=== PATIENT | male | born 1955 | race Caucasian/White ===

== ENCOUNTER 2017-02-25 14:04 | Observation (INO) | payer OTHER ==
[2017-02-25] MEDS ORDERED: morphine CARPU-JECT 4 MG/1 ML DISP.SYRIN IVPUSH ONE ×2 (14:24→17:26)
[2017-02-25] MEDS ORDERED: DIPHTH,PERTUSS(ACELL),TET 0.5 ML DISP.SYRIN IM ONE (14:24)
--- NOTE | 2017-02-25 14:59 | PDOC ---
History of Present Illness - General Chief Complaint: Laceration Stated Complaint: LACERATION Time Seen by Provider: 02/25/17 14:18 History Source: Patient - History of Present Illness Initial Comments: 61 y/o M w/PMH of DM, HTN, HLD presents to ER after amputating R pinky between DIP and PIP while wood-working at home. Pt does not have the remaining finger with him. He complains of severe pain and light-headedness and headache. He also has a laceration between DIP and PIP of R index finger. Pt is on baby aspirin but no other blood thinners. Pt denies N/V/F/C, PCP: Dr. Ferrer Past History - Past Medical History Allergies/Adverse Reactions: Allergies Allergy/AdvReac Type Severity Reaction Status Date / Time No Known Allergies Allergy Verified 02/25/17 14:08 Home Medications: Ambulatory Orders Aspirin Coated [Ecotrin -] 81 mg PO DAILY 08/29/16 Donepezil HCl [Aricept -] 10 mg PO HS 08/29/16 Glimepiride [Amaryl -] 4 mg PO BID 08/29/16 Insulin Lispro Protamin/Lispro [Humalog Mix 75-25 Vial] 30 unit SQ BID 08/29/16 Lisinopril/Hydrochlorothiazide [Lisinopril-Hctz 20-25 mg Tab] 1 tab PO DAILY Metformin HCl [Glucophage] 1,000 mg PO BID 08/29/16 Metoprolol Tartrate 100 mg PO BID 08/29/16 Simvastatin 40 mg PO DAILY 08/29/16 Anemia: No Asthma: No Cancer: No Cardiac Disorders: No CVA: No COPD: No CHF: No Dementia: No (MILD FORGETFULNESS) Diabetes: Yes (DX 1995) GI Disorders: No Disorders: No HTN: Yes (DX 2000) Hypercholesterolemia: Yes Liver Disease: No Seizures: No Thyroid Disease: No - Surgical History Abdominal Surgery: No Appendectomy: No Cardiac Surgery: No Cholecystectomy: No Lung Surgery: No Neurologic Surgery: No Orthopedic Surgery: Yes (RIGHT LEG FX REPAIR-2000) - Psycho/Social/Smoking Cessation Hx Anxiety: No Suicidal Ideation: No Smoking History: Never smoked Have you smoked in the past 12 months: Yes Hx Alcohol Use: No Drug/Substance Use Hx: No Substance Use Type: None Hx Substance Use Treatment: No Review of Systems - Review of Systems Able to Perform ROS?: Yes Comments:: CONSTITUTIONAL: Absent: fever, no chills CARDIOVASCULAR: Absent: chest pain, no palpitations RESPIRATORY: Absent: cough, no SOB GI: Absent: abdominal pain, no nausea, no vomiting, no constipation, no diarrhea GENITOURINARY: Absent: dysuria, no frequency, no hematuria MUSCULOSKELETAL: +pain at R pinky and index finger Absent: back pain, no arthralgia, no myalgia SKIN: Absent: rash NEURO: +headache, light-headedness *Physical Exam - Vital Signs Last Vital Signs Temp Pulse Resp BP Pulse Ox 97.4 F L 66 20 107/54 97 02/25/17 14:05 02/25/17 14:05 02/25/17 14:05 02/25/17 14:05 02/25/17 14:05 - Physical Exam Comments: GENERAL: Well-appearing, well-nourished. Diaphoretic HEENT: Normocephalic, atraumatic. EOM intact. Pale conjunctiva. CARDIOVASCULAR: Normal S1, S2. Regular rate and rhythm. PULMONARY: Clear to auscultation bilaterally. Auscultated anteriorly. ABDOMEN: Soft, non-distended, non-tender. EXTREMITIES: +R pinky amputation between DIP and PIP +R index laceration between DIP and PIP SKIN: As described in extremities above. NEUROLOGICAL: No focal neurological deficits. ED Treatment Course - RADIOLOGY Radiology Studies Ordered: Category Date Time Status HAND- RIGHT [RAD] Stat Radiology 02/25/17 14:25 Ordered Medical Decision Making - Medical Decision Making 02/25/17 14:30 IV inserted, IVF NS @ 100ml/hr, 1g ancef IV, 4 mg morphine IV, tetanus booster R Hand XR Hand Consulted 02/25/17 16:25 Hand XR shows amputation of distal 5th finger at the mid shaft of the middle phalanx. 02/25/17 16:27 Pt's R hand will be soaked in betadine. Awaiting arrival of ortho/hand specialist. Case discussed with hand specialist with Dr. Gorman. 02/25/17 17:00 Dr. Reza present at bedside. Pt consents to bedside flap closure of fifth digit and suturing of 2nd and 4th digit. Pt also given 4 mg morphine IV prior to procedure. 02/25/17 18:27 Dr. Reza recommends admission and observation over at least 24 hours with IV abx and to monitor for signs of infection as pt had bone exposure and has pmh of insulin dependant diabetes. Will place on IV zosyn. 02/25/17 18:36 Case discussed with hospitalist Latia Bartholomew who accepts admission. 02/25/17 18:48 *DC/Admit/Observation/Transfer Diagnosis at time of Disposition: Open fracture dislocation of digit of hand, Immunocompromised, Insulin dependent diabetes mellitus - Discharge Dispostion Admit: Yes - Referrals Referrals: Maliha Boo MD [Primary Care Provider] -
[2017-02-25] MEDS ORDERED: morphine CARPU-JECT 4 MG/1 ML DISP.SYRIN ONE ×2 (15:01→17:29)
--- NOTE | 2017-02-25 15:05 | PDOC ---
Attending Attestation - Resident Resident Name: Francisco Stewart - ED Attending Attestation I have performed the following: I have examined & evaluated the patient, The case was reviewed & discussed with the resident, I agree w/resident's findings & plan, Exceptions are as noted - HPI HPI: 02/25/17 15:02 61y/o M p/w isolated R hand digit injury while using circular saw. - Physicial Exam PE: 02/25/17 15:02 R hand: complete amputation 5th digit at PIP, deep tissue laceration palmar aspect 4th digit at middle phalanx, deep tissue laceration palmar aspect index finger at DIP. flex/extend intact. no other injuries - Medical Decision Making 02/25/17 15:03 Patient seen and evaluated with the resident. I agree with the overall evaluation, assessment, and management with the following summary of visit: 61y/o M with deep tissue laceration to index and ring fingers, complete amputation 5th digit of dominant R hand. pain control xray tetanus, abx hand consult 02/25/17 16:59 discussed with Shahzad AMADOR, covering Dr. Garcia. Agrees with management, en route to see patient.
[2017-02-25] MEDS: SODIUM CHLORIDE 1,000 ML IV SCH (15:06)
[2017-02-25] MEDS ORDERED: CEFAZOLIN (PRE-DOCKED) 1 GM in DEXTROSE 5%-WATER - 50 ML IVPB ONE (15:12)
[2017-02-25] MEDS ORDERED: LIDOCAINE HCL/PF 1% SDV 5ML VIAL ONE ×2 (17:25→17:51)
[2017-02-25] MEDS ORDERED: CEFAZOLIN (PRE-DOCKED) 50 ML IVPB ONE (17:30)
[2017-02-25] MEDS ORDERED: LIDOCAINE HCL 1%, 10 MG/ML (50 mL VIAL) SQ ONE (17:44)
[2017-02-25] MEDS ORDERED: ACETAMINOPHEN INJECTION 100 ML IVPB ONE (18:02)
--- NOTE | 2017-02-25 18:22 | CONSULT ---
Consult - text type - Consultation Consultation Note: FULL CONSULT DICTATED IMP; PARTIAL AMPUTATION RIGHT 5TH FINGER AND MULTIPLE AMPUTATIONS 4TH AND 2ND FINGER RIGHT HAND PLAN: CLOSURE IN ER, ADMIT FOR IV ABX PATIENT IS A IDDM AND EXPOSED BONE, WILL FOLLOW
[2017-02-25] MEDS ORDERED: PIPERACILLIN/TAZOB 3.375 GM/50 ML PRE-DOCKED IVPB ONE (18:37)
[2017-02-25] MEDS ORDERED: PIPERACILLIN/TAZOB 3.375 GM 50 ML IVPB ONE (18:50)
--- NOTE | 2017-02-25 19:51 | CONS ---
DATE OF CONSULTATION: 02/25/2017 EMERGENCY ROOM CONSULTATION HISTORY OF PRESENT ILLNESS: Patient is a 62-year-old insulin dependent diabetic who was operating heavy machinery at home, question if it was a circular saw, which lacerated and partially amputated 5th finger and lacerated his 4th and 2nd finger. Patient was given IV antibiotics and tetanus booster in the emergency room, received x-rays, and called orthopedics for evaluation. Patient is right hand dominant. On physical examination, patient has multiple lacerations to his right hand. He has an amputation of his right 5th finger through the middle phalanx, some exposed bone. The PIP joint is mobile. He has a laceration through the palmar surface of the 4th middle phalanx in a stellate fashion medial lateral sensation and sensation distal to laceration is intact, and he has good independent DIP, PIP, and MCP motion 4th finger, and brisk capillary refill. He has a laceration on the palmar surface of his 2nd finger over the middle phalanx, again this is a stellate fashion some ulnar radial, again sensation distal to the laceration is intact. Brisk capillary refill and good motion of his DIP, PIP, and MCP joints. The 3rd finger and thumb were unaffected. X-ray revealed an amputation through the middle phalanx not involving the PIP joint. The rest of the fingers have no fracture. IMPRESSION: Partial amputation of his right 5th finger and lacerations to his 2nd and 4th fingers in an insulin dependent diabetic. PLAN: The wounds were copiously irrigated in the emergency room, soaked in Betadine and saline. They were then cleaned and placed on a sterile drape and further cleaned. First the right 5th finger was addressed. There was some exposure of the bone. The base metacarpal block was 1% lidocaine administered on either side of the metacarpal head on the 2nd, 4th, and 5th fingers. Addressing the 5th finger, the exposed bone was rongeured back until it was below the surface of the skin and part of the exposed tendon was debrided. There was a flap of skin on the more dorsum of the finger, some of the fat in that region was removed, and then was flapped over the top of the exposed bone and sutured with 3-0 nylon to the volar skin loosely. The lacerations to the 2nd and 4th fingers which were again stellate and extending radial to ulna on both fingers were cleaned and then were closed with 3-0 nylon suture as well. Exploration of both those wounds reveals unexposed tendon but tendon itself appeared to be intact. No arterial bleeders were seen. Patient has brisk capillary refill distally and good motion. The lacerations were both closed using simple 3-0 nylon sutures. All wounds were then dressed with Xeroform dressing, and then a 2-inch Oneal. Patient will elevate the arm, will be admitted to the hospital for observation and for IV antibiotics. I went through risks, benefits, and alternatives with patient before the procedure and had him sign consent. Patient understands he has an increased risk of infection due to the open nature of the incisions and his insulin dependent diabetes. Will follow the patient closely, see how he is doing tomorrow. If all is well we will send the patient home on p.o. antibiotics and follow his incisions and lacerations as an outpatient. ASTRID KATHLEEN M.D. [id number]
[2017-02-25] MEDS ORDERED: morphine CARPU-JECT 2 MG/1 ML DISP.SYRIN IVPUSH PRN (20:23)
--- NOTE | 2017-02-25 20:46 | HP ---
CHIEF COMPLAINT: I cut my pinky finger PCP: Dr Ferrer HISTORY OF PRESENT ILLNESS: 61 year old male with significant pmh of diabetes, HTN, CAD , 3 ND with 3 stents , HPLD, CKD, dementia presented to the ED with right hand after cutting his finger while doing wood working with a saw at home. he was unable to find the finger. he denies any significant bleeding. IN ED pain medication was given and Orthopedist was called and did a closure of exposed bone. Pt complained of of some stiffness and pain in right hand (mostly 5th and 4th digit) as the anesthetic is wearing off 8/10, sharp, constant with spams, non radiating. Pt has no fever or chills, no numbness or tingling, no focal weakness. ER course was notable for: (1) Xray right hand (2) IV fluid NS at 100 (3) Boostrix, Morphine Recent Travel: none PAST MEDICAL HISTORY: diabetes, HTN, CAD , 3 ND with 3 stents, HPLD, CKD, Dementia PAST SURGICAL HISTORY: Right leg fracture repair with metal hipolito, right shoulder surgery 3 months ago Social History: Smoking: denies Alcohol:denies Drugs: denies Lives with family, retired Family History: Mother with Alzheimer's father with HTN, HPLD, Diabetes and heart disease Allergies No Known Allergies Allergy (Verified 02/25/17 14:08) HOME MEDICATIONS: Home Medications Medication Instructions Recorded Aspirin Coated [Ecotrin -] 81 mg PO DAILY 08/29/16 Donepezil HCl [Aricept -] 10 mg PO HS 08/29/16 Glimepiride [Amaryl -] 4 mg PO BID 08/29/16 Insulin Lispro Protamin/Lispro 30 unit SQ BID 08/29/16 [Humalog Mix 75-25 Vial] Lisinopril/Hydrochlorothiazide 1 tab PO DAILY 08/29/16 [Lisinopril-Hctz 20-25 mg Tab] Metformin HCl [Glucophage] 1,000 mg PO BID 08/29/16 Metoprolol Tartrate 100 mg PO BID 08/29/16 Simvastatin 40 mg PO DAILY 08/29/16 REVIEW OF SYSTEMS CONSTITUTIONAL: Absent: fever, chills, diaphoresis, generalized weakness, malaise, loss of appetite, weight change HEENT: Absent: rhinorrhea, nasal congestion, throat pain, throat swelling, difficulty swallowing, mouth swelling, ear pain, eye pain, visual changes CARDIOVASCULAR: Absent: chest pain, syncope, palpitations, irregular heart rate, lightheadedness , peripheral edema RESPIRATORY: Absent: cough, shortness of breath, dyspnea with exertion, orthopnea, wheezing, stridor, hemoptysis GASTROINTESTINAL: Absent: abdominal pain, abdominal distension, nausea, vomiting, diarrhea, constipation, melena, hematochezia GENITOURINARY: Absent: dysuria, frequency, urgency, hesitancy, hematuria, flank pain, genital pain MUSCULOSKELETAL: right hand pain Absent: myalgia, arthralgia, joint swelling, back pain, neck pain SKIN: Absent: rash, itching, pallor HEMATOLOGIC/IMMUNOLOGIC: Absent: easy bleeding, easy bruising, lymphadenopathy, frequent infections ENDOCRINE: Absent: unexplained weight gain, unexplained weight loss, heat intolerance, cold intolerance NEUROLOGIC: Absent: headache, focal weakness or paresthesias, dizziness, unsteady gait, seizure, mental status changes, bladder or bowel incontinence PSYCHIATRIC: Absent: anxiety, depression, suicidal or homicidal ideation, hallucinations. PHYSICAL EXAMINATION Vital Signs - 24 hr 02/25/17 19:06 Temperature 98.5 F Pulse Rate [ 80 Apical] Respiratory 18 Rate Blood Pressure 130/77 [Right Arm] O2 Sat by Pulse 100 Oximetry (%) GENERAL: Awake, alert, and fully oriented, in no acute distress. HEAD: Normal with no signs of trauma. EYES: Pupils equal, round and reactive to light, extraocular movements intact, sclera anicteric, conjunctiva clear. No lid lag. EARS, NOSE, THROAT: Ears normal, nares patent, oropharynx clear without exudates. Moist mucous membranes. NECK: Normal range of motion, supple without lymphadenopathy, JVD, or masses. LUNGS: Breath sounds equal, clear to auscultation bilaterally. No wheezes, and no crackles. No accessory muscle use. HEART: Regular rate and rhythm, normal S1 and S2 without murmur, rub or gallop. ABDOMEN: Soft, nontender, not distended, normoactive bowel sounds, no guarding, no rebound, no masses. No hepatomegaly or splenomegaly. MUSCULOSKELETAL: Normal range of motion at all joints. No bony deformities or tenderness. No CVA tenderness. UPPER EXTREMITIES: 2+ pulses, warm, well-perfused. No cyanosis. No clubbing. No peripheral edema. Right hand with transection on 5th digit midshaft in middle phalynx covered with gauze dressing. 2nd and 4th digit of right hand covered with gauze deeding amalia to laceration. decreased range on motion in all digits LOWER EXTREMITIES: 2+ pulses, warm, well-perfused. No calf tenderness. No peripheral edema. NEUROLOGICAL: . Normal speech. Normal gait. Normal sensation to light touch in all digits anteriorly and posteriorly, stiffness and mild decreased range of motion and strength. PSYCHIATRIC: Cooperative. Good eye contact. Appropriate mood and affect. SKIN: Warm, dry, normal turgor, no rashes or lesions noted, normal capillary refill. ASSESSMENT/PLAN: 61 year old male with significant pmh of diabetes, HTN, CAD, 3 ND with 3 stents , HPLD, CKD, Mild Dementia s/p amputation of the 5th digit middle phalanx S/p amputation of the 5th digit middle phalanx Dr Garcia seen pt in ED bedside flap closure of fifth digit and suturing of 2nd and 4th digit Pt will need IV antibiotic since pt is diabetic and bone was exposed Boostrix IM Given in ED neurovascular check q2h monitor for bleeding and infection CBC Morphine 2mg q4h prn Zosyn IV 3.375 q8h consider ID consult Diabetes Hgba1c Novolog sliding scle BGM ACHS HTN Metoprolol Lisinopril 20 mg po daily Hctz 25 mg po daily Hyperlipidemia Simvastatin 40qhs CAD/MIx3 s/p stent x3 EKg CXR aspirin FEN Fluid: NS at 100ml/h Electrolytes: chemistry Nutrition: diabetic DVT prophylaxis: SCD, early ambulation Disposition: Observation in [facility] Visit type - Emergency Visit Emergency Visit: Yes ED Registration Date: 02/25/17 Care time: The patient presented to the Emergency Department on the above date and was hospitalized for further evaluation of their emergent condition. - New Patient This patient is new to me today: Yes Date on this admission: 02/26/17 - Critical Care Critical Care patient: No
[2017-02-25] MEDS ORDERED: morphine CARPU-JECT 2 MG/1 ML DISP.SYRIN ONE (21:01)
[2017-02-25] MEDS: morphine CARPU-JECT 2 MG/1 ML DISP.SYRIN IVPUSH PRN (21:07)
--- NOTE | 2017-02-25 21:26 | PN ---
<Aneta Leon - Last Filed: 03/11/17 20:11> Teaching Attending Note Name of Resident: Anatolylucio Olivaresmario <Arlene Peterson - Last Filed: 03/11/17 20:40> Teaching Attending Note ATTENDING PHYSICIAN STATEMENT I saw and evaluated the patient. I reviewed the resident's note and discussed the case with the resident. I agree with the resident's findings and plan as documented. SUBJECTIVE: 61 yo M with PMHX of DM who presents with isolated R hand digit injury today. Patient states he was cutting wood with a circular saw and cut his finger. The patient does not have his remaining finger. Patient also sustained a deep tissue laceration to R index and R ring finger. Patient complains of severe pain to the area with associated lightheadedness and headache. Upon ED evaluation, Dr. Reza was called in and performed a suture and flap. PMHx: HTN, HLD PSHx: R Leg Fracture repair in 2000, right shoulder surgery 3 months ago Social Hx: None Allergies: NKA OBJECTIVE: Last Vital Signs Temp Pulse Resp BP Pulse Ox 98.4 F 79 18 131/76 97 02/25/17 23:15 02/25/17 23:15 02/25/17 23:15 02/25/17 23:15 02/25/17 23:15 GENERAL: Awake, alert, and fully oriented, in no acute distress HEENT: Atraumatic. PERRLA, EOMI. Moist mucosa. No JVD LUNGS: No distress, speaks full sentences, clear to auscultation bilaterally HEART: Regular rate and rhythm, normal S1 and S2, no murmurs, rubs or gallops, peripheral pulses normal and equal bilaterally. ABDOMEN: Soft, nontender, normoactive bowel sounds. No guarding, no rebound. No masses EXTREMITIES: Normal inspection, Normal range of motion, no edema. No clubbing or cyanosis. R 5th digit amputation. R 2nd and 4th digit with deep laceration. NEUROLOGICAL: Cranial nerves II through XII grossly intact. Normal speech, normal gait, no focal sensorimotor deficits SKIN: Warm, Dry, normal turgor, no rashes or lesions noted. R 5th Finger is bandaged. Imaging: R Hand Xray AP, oblique and lateral projections of the right hand reveals amputation of the distal fifth finger at the mid shaft of the middle phalanx. No additional fractures or acute bony abnormalities are identified.Impression: S/P amputation distal fifth finger. ASSESSMENT AND PLAN: 1.Fifth R finger amputation And 4th and 2nd finger also Ortho consult go s/p close in the ED and recommending IV abx and tight glycemic control Tetanus given in the ED 2.DM Insulin SS Fingersticks ACHS CBC BMP Hemoglobin A1C Repeat CBC in AM Morphine 2 mg Q4 PRN for severe pain 3.HTN Continue HTN medications Lisinopril Hydrochlorothiazide Metoprolol 100 mg PO BID EKG and CXR 4.Dementia not taking medications for dementia Mental status checks Documentation prepared by Arlene Peterson, acting as medical insurance claims specialist for Aneta Leon MD.
[2017-02-25] MEDS ORDERED: ATORVASTATIN CA 20 MG TABLET (FP) PO SCH (22:00)
[2017-02-25] MEDS ORDERED: DONEPEZIL HCL 10 MG TABLET (FP) PO SCH (22:00)
[2017-02-25] MEDS ORDERED: ATORVASTATIN CA 40 MG TABLET (FP) ONE (22:39)
[2017-02-25] MEDS ORDERED: METOPROLOL TARTRATE 50 MG TABLET (FP) ONE (22:39)
[2017-02-25] MEDS ORDERED: DONEPEZIL HCL 5 MG TABLET (FP) ONE (22:40)
[2017-02-25] MEDS: METOPROLOL TARTRATE 50 MG TABLET (FP) PO SCH (22:45)
[2017-02-26] MEDS: SODIUM CHLORIDE 1,000 ML IV SCH ×2 (00:51→12:07)
[2017-02-26] MEDS: morphine CARPU-JECT 2 MG/1 ML DISP.SYRIN IVPUSH PRN ×3 (00:52→12:06)
[2017-02-26 01:05] VITALS: BMI 35.6
[2017-02-26] MEDS ORDERED: PIPERACILLIN/TAZOB 3.375 GM/50 ML PRE-DOCKED IVPB ONE ×2 (03:00→08:55)
[2017-02-26] MEDS ORDERED: INSULIN (NOVOLOG) ASPART 100 UNITS/ML 10ML VIAL ONE ×2 (06:26→12:05)
[2017-02-26] MEDS: INSULIN SLIDING SCALE (NOVOLOG) 1 VIAL SQ SCH ×2 (06:33→12:01)
[2017-02-26 08:51] VITALS: BP 151/88; PULSE 70; TEMP 97.9
[2017-02-26] MEDS: METOPROLOL TARTRATE 50 MG TABLET (FP) PO SCH (09:48)
[2017-02-26] MEDS ORDERED: ASPIRIN COATED 81 MG TABLET.EC PO SCH (10:00)
[2017-02-26] MEDS ORDERED: HYDROCHLOROTHIAZIDE 25 MG TABLET (FP) PO SCH (10:00)
[2017-02-26] MEDS ORDERED: LISINOPRIL 20 MG TABLET (FP) PO SCH (10:00)
--- NOTE | 2017-02-26 10:52 | PN ---
Progress Note (short form) - Note Progress Note: Pt seen and examined. He is doing well, he is comfortable, no c/o pain. Right hand in a gauze bandage. Right 1st, 2nd, 4th fingers grossly NVI, good ROM, cuts/scrapes but no deep lac. Right 3rd and 5th fingers s/p revision amputation, doing well, no drainage, intact ROM, min pain. Overall pt doing very well 1 day s/p table saw injury and partial amputation of the right 3rd and 5th fingers. I rec con't PO abx, as the pt is diabetic. Daily hydrogen peroxide soaks and rewrap with a clean bandage. F/U with me on Thursday, 4 day time for a wound check.
--- NOTE | 2017-02-26 11:31 | EKG ---
Test Reason : Blood Pressure : / mmHG Vent. Rate : 081 BPM Atrial Rate : 081 BPM P-R Int : 160 ms QRS Dur : 102 ms QT Int : 378 ms P-R-T Axes : 046 057 048 degrees QTc Int : 439 ms NORMAL SINUS RHYTHM NORMAL ECG WHEN COMPARED WITH ECG OF 07-SEP-2016 00:52, NO SIGNIFICANT CHANGE WAS FOUND Confirmed by GAVIOTA COLON MD ([id number]) on 02/26/2017 11:30:58 AM Referred By: KIKA PUGA Confirmed By:GAVIOTA COLON MD
--- NOTE | 2017-02-26 11:32 | EKG ---
Test Reason : Blood Pressure : / mmHG Vent. Rate : 077 BPM Atrial Rate : 077 BPM P-R Int : 156 ms QRS Dur : 102 ms QT Int : 406 ms P-R-T Axes : 000 122 124 degrees QTc Int : 459 ms NORMAL SINUS RHYTHM LEFT POSTERIOR FASCICULAR BLOCK ABNORMAL ECG WHEN COMPARED WITH ECG OF 07-SEP-2016 00:52, LEFT POSTERIOR FASCICULAR BLOCK IS NOW PRESENT NONSPECIFIC T WAVE ABNORMALITY NOW EVIDENT IN LATERAL LEADS Confirmed by GAVIOTA COLON MD ([id number]) on 02/26/2017 11:32:30 AM Referred By: Confirmed By:GAVIOTA COLON MD
[2017-02-26 11:42] LABS: MCH 26.8 pg (25.7-33.7); MCHC 32.5 g/dl (32.0-35.9); MEAN CELL VOLUME 82.4 fl (80-96); MEAN PLT VOLUME 9.1 fl (7.5-11.1); PLATELET COUNT 217 K/MM3 (134-434); RDW 14.9 % (11.9-15.9); WHITE BLOOD COUNT 9.3 K/mm3 (4.0-10.0)
--- NOTE | 2017-02-26 13:56 | PN ---
Teaching Attending Note Name of Resident: Esa Osuna ATTENDING PHYSICIAN STATEMENT I saw and evaluated the patient. I reviewed the resident's note and discussed the case with the resident. I agree with the resident's findings and plan as documented. SUBJECTIVE:states pain is controlled. states he took 2 tabs of zyrtec yesterday morning due to allergies and was sleepy when using circular saw. denies CP, SOB, fever, chills, N/V/C/D OBJECTIVE: Last Vital Signs Temp Pulse Resp BP Pulse Ox 97.9 F 70 20 151/88 98 02/26/17 08:50 02/26/17 08:50 02/26/17 10:00 02/26/17 08:50 02/26/17 10:00 General NAD CV S1 S2 RRR no murmur/rub/gallop Lungs CTA B/L no wheezing/rales/rhonchi Extremities dried blood noted on R hand. bandaged with dried blood. mild swelling. pulse 2+. able to move all digits ASSESSMENT AND PLAN: 61yo M with PMH DM, CAD s/p stent, CKD and dementia presented to the ER and was admitted for further evaluation of their emergent condition 1. R 5th digit amputation- s/p trauma to hand with hand saw. s/p flap closure in the ER by ortho. received cefazolin and zosyn [id number]. awaiting ortho recommendation on abx selection and re-evaluation. Tetnus given in ER. pain control. educated on use of opiates on discharge. medication can cause sedation and constopation. advised not to drive or operate heavy machinery or drive while taking medication 2. d/c planning pending ortho recommendations.
--- NOTE | 2017-02-26 16:17 | DS ---
Physical Exam: SUBJECTIVE: Patient seen and examined at bedside. He stated that pain is under control after getting morphine at 6am. No other complaint. Denies fever, chills, chest pain and shortness of breath. OBJECTIVE: Vital Signs Period Temp Pulse Resp BP Sys/Jerome Pulse Ox Last 24 Hr 97.1 F-98.4 F 70-79 18-20 126-151/66-88 97-98 PHYSICAL EXAM GENERAL: Awake, alert, and fully oriented, in no acute distress. LUNGS: Breath sounds equal, clear to auscultation bilaterally. No wheezes, and no crackles. No accessory muscle use. HEART: Regular rate and rhythm, normal S1 and S2 without murmur, rub or gallop. ABDOMEN: Soft, nontender, not distended, normoactive bowel sounds, no guarding, no rebound, no masses. No hepatomegaly or splenomegaly. UPPER EXTREMITIES: blood tinted dressing covering R 2nd, 4th fingers. R 5th finger amputated. Full range of motion. LABS Laboratory Results - last 24 hr 02/25/17 02/26/17 02/26/17 21:00 05:38 06:10 WBC 9.3 RBC 4.90 Hgb 13.1 Hct 40.4 MCV 82.4 MCHC 32.5 RDW 14.9 Plt Count 217 MPV 9.1 POC Glucometer 272 Hemoglobin A1c % 8.6 H 02/26/17 11:54 WBC RBC Hgb Hct MCV MCHC RDW Plt Count MPV POC Glucometer 147 Hemoglobin A1c % HOSPITAL COURSE: Date of Admission:02/25/17 61 year old male with significant pmh of diabetes, HTN, CAD, 3 LA with 3 stents , HPLD, CKD, Mild Dementia admitted to the hospital due to amputation of the 5th digit middle phalanx from traumatic injury. In the ED, patient was seen by hand surgery and flap closure of fifth digit and suturing of 2nd and 4th digit were performed without any complication. He received morphine for pain, zosyn and cefazolin for antibiotics considering his diabetic status. He's re- evaluated by hand surgery this morning and cleared to be discharged home and follow up with hand surgeon as outpatient on next Thursday. Patient is instructed to cont. taking augmentin 500mg BID for 7 days and percocet every 6 hours as needed for pain. Date of Discharge: 05/18/17 Minutes to complete discharge: 35 Discharge Summary Reason For Visit: OPEN FRACTURE OF DISLOCATED DIGIT OF HAND Current Active Problems Cut of finger (Acute) Open fracture dislocation of digit of hand (Acute) Traumatic injury (Acute) Insulin dependent diabetes mellitus (Chronic) Condition: Stable - Instructions Diet, Activity, Other Instructions: Instruction for continuing care: You were admitted to the hospital after traumatic injury to your R 5th finger which caused amputation. You have been re-examined today by hand surgeon today and you are cleared to go home. Here is what you need to do: 1. Take the antibiotics called augmentin 500mg twice a day for 7 days, take percocet 1 tablet every 6 hours as needed for pain control 2. Soak your fingers in hydrogen peroxide solution everyday and re-wrap your fingers with clean bandage 3. See Dr. Garcia on Thursday for further wound care Referrals: Maliha Boo MD [Primary Care Provider] - Milo Garcia MD [Staff Physician] - Disposition: HOME - Home Medications Comprehensive Discharge Medication List: Ambulatory Orders Aspirin Coated [Ecotrin -] 81 mg PO DAILY 08/29/16 Donepezil HCl [Aricept -] 10 mg PO HS 08/29/16 Glimepiride [Amaryl -] 4 mg PO BID 08/29/16 Insulin Lispro Protamin/Lispro [Humalog Mix 75-25 Vial] 30 unit SQ BID 08/29/16 Lisinopril/Hydrochlorothiazide [Lisinopril-Hctz 20-25 mg Tab] 1 tab PO DAILY Metformin HCl [Glucophage] 1,000 mg PO BID 08/29/16 Metoprolol Tartrate 100 mg PO BID 08/29/16 Simvastatin 40 mg PO DAILY 08/29/16 Amox-Tr/K Cl [Augmentin - 500Mg Tablet] 1 tab PO BID #14 tab 02/26/17 Oxycodone HCl/Acetaminophen [Percocet 10-325 mg Tablet] 1 each PO Q6H PRN #12 tablet MDD 6 tab 02/26/17 This patient is new to me today: Yes Date on this admission: 02/26/17 Emergency Visit: Yes ED Registration Date: 02/25/17 Care time: The patient presented to the Emergency Department on the above date and was hospitalized for further evaluation of their emergent condition. Critical Care patient: No - Discharge Referral Referred to [facility] No
== END 2017-02-26 15:23 | disposition home or self-care (01) ==
LOC: JER 14:04 → UNDOADMOB 18:41 → INTOOBSV 18:41 → JERBED 18:41 → J6S 02-26 00:20 → JERBED 02-26 00:20 → J6S 02-26 00:20
PROVIDERS: ADMIT Internal Medicine; ATTEND Internal Medicine
PROC: 0PBT0ZZ Excision of Right Finger Phalanx, Open Approach (ICD-10-PCS; principal; 2017-02-25)
PROC: 0HXFXZZ Transfer Right Hand Skin, External Approach (ICD-10-PCS; 2017-02-25)
PROC: 0HQFXZZ Repair Right Hand Skin, External Approach (ICD-10-PCS; 2017-02-25)
PROC: 3E03329 Introduction of Other Anti-infective into Peripheral Vein, Percutaneous Approach (ICD-10-PCS; 2017-02-25)
PROC: 3E0337Z Introduction of Electrolytic and Water Balance Substance into Peripheral Vein, Percutaneous Approach (ICD-10-PCS; 2017-02-25)
PROC: 3E033GC Introduction of Other Therapeutic Substance into Peripheral Vein, Percutaneous Approach (ICD-10-PCS; 2017-02-25)
PROC: 3E0234Z Introduction of Serum, Toxoid and Vaccine into Muscle, Percutaneous Approach (ICD-10-PCS; 2017-02-25)
DX: S68.626A Partial traumatic transphalangeal amputation of right little finger, initial encounter (principal); S61.214A Laceration without foreign body of right ring finger without damage to nail, initial encounter; S61.210A Laceration without foreign body of right index finger without damage to nail, initial encounter; I12.9 Hypertensive chronic kidney disease with stage 1 through stage 4 chronic kidney disease, or unspecified chronic kidney disease; N18.9 Chronic kidney disease, unspecified; I25.10 Atherosclerotic heart disease of native coronary artery without angina pectoris; I25.2 Old myocardial infarction; Z95.5 Presence of coronary angioplasty implant and graft; F03.90 Unspecified dementia, unspecified severity, without behavioral disturbance, psychotic disturbance, mood disturbance, and anxiety; E78.5 Hyperlipidemia, unspecified; E11.9 Type 2 diabetes mellitus without complications; Z79.4 Long term (current) use of insulin; Z79.82 Long term (current) use of aspirin; W31.2XXA Contact with powered woodworking and forming machines, initial encounter; Y93.89 Activity, other specified; Y92.9 Unspecified place or not applicable
CPT/HCPCS: 36415; 71020-TC; 73130-TC-RT; 83036; 85027; 90715; 93005; 93010; 99285-25; G0378